=== PATIENT | male | born 1975 | race Two or more races ===

== ENCOUNTER 2024-03-31 00:51 | Emergency (ER) | payer OTHER ==
[~2024-03-31] VITALS: Ht 167.6 cm; Wt 81.6 kg
[2024-03-31 01:22] VITALS: BP 135/88; O2SAT 100
[2024-03-31] MEDS ORDERED: HYOSCYAMINE SULFATE 0.125 MG TAB.SUBL SL STA (02:58)
[2024-03-31] MEDS ORDERED: METOCLOPRAMIDE HCL 5 MG/ML VIAL IM STA (02:59)
[2024-03-31] MEDS ORDERED: FAMOtidine 10 MG/ML (4ML VIAL) IV PUSH STA (03:00)
[2024-03-31] MEDS ORDERED: HYOSCYAMINE SULFATE 0.125 MG TAB.SUBL ONE (03:04)
[2024-03-31] MEDS ORDERED: METOCLOPRAMIDE HCL 5 MG/ML VIAL ONE (03:05)
[2024-03-31] MEDS ORDERED: FAMOTIDINE/PF 20 MG/2 ML VIAL ONE (03:05)
== END 2024-03-31 03:34 | disposition home or self-care (01) ==
LOC: ER 00:53
DX: K29.70 Gastritis, unspecified, without bleeding (principal); K30 Functional dyspepsia; R10.9 Unspecified abdominal pain
CPT/HCPCS: 96365; 96372; 99282; J2765; J3490